=== PATIENT | male | born 1980 | race African-American/Black ===

== ENCOUNTER 2023-06-11 14:08 | Emergency (ER) | payer OTHER ==
[~2023-06-11] VITALS: Ht 182.9 cm; Wt 145.5 kg
[2023-06-11 14:09] VITALS: TEMP 98
[2023-06-11] MEDS ORDERED: Furosemide 40 MG/4 ML VIAL IV ONE (15:00)
[2023-06-11 16:33] LABS: BASO % 0.5 % (0.0-2.0); EOS # 0.1 K/mm3 (0.0-0.7); EOS % 1.6 % (0.0-4.0); GRAN % 67.9 % (42.2-75.2); HEMATOCRIT 39.4 % (42.0-52.0); HEMOGLOBIN 12.1 g/dl (13.5-18.0); LYMPH # 1.6 K/mm3 (1.2-3.4); LYMPH % 18.3 % (20.0-51.0); MEAN CELL VOLUME 81 fl (80.0-100.0); MEAN CORPUSCULAR HEMOGLOBIN 25 pg (27-31); MEAN CORPUSCULAR HGB CONC 31 g/dl (33.0-37.0); MEAN PLATELET VOLUME 9.9 fl (7.4-10.4); MONO % 11.5 % (1.7-9.3); PLATELET COUNT 212 K/mm3 (130-400); RED BLOOD COUNT 4.86 M/mm3 (4.20-5.60); REDCELL DISTRIBUTION WIDTH-CV 17.2 % (11.5-14.5)
[2023-06-11 16:44] LABS: INR 1.2 (0.8-3.0); PROTHROMBIN TIME 13.4 SECONDS (9.7-12.8)
[2023-06-11 16:47] LABS: PARTIAL THROMBOPLASTIN TIME 34.6 SECONDS (26.0-37.0)
[2023-06-11 16:51] LABS: ALBUMIN 3.3 gm/dL (3.5-5.0); BILIRUBIN,TOTAL 0.7 mg/dL (0.2-1.2); CALCIUM 9.3 mg/dL (8.4-10.2); CREATININE, serum 1.74 mg/dL (0.72-1.25); MAGNESIUM 1.7 mg/dL (1.6-2.6); POTASSIUM 3.5 mmol/L (3.5-4.5); TOTAL PROTEIN 8.4 gm/dL (6.2-8.1)
[2023-06-11 16:52] LABS: TROPONIN-I 0.023 ng/mL (0.00-0.033)
[2023-06-11 17:36] VITALS: BP 132/92; PULSE 82
== END 2023-06-11 17:53 | disposition home or self-care (01) ==
LOC: COL.ER 14:08
PROVIDERS: Family Medicine
DX: R06.89 Other abnormalities of breathing (principal); R60.9 Edema, unspecified
CPT/HCPCS: J1940

== ENCOUNTER 2023-08-07 12:17 | Emergency (ER) | payer OTHER ==
[~2023-08-07] VITALS: Ht 188 cm; Wt 157.0 kg
[~2023-08-07 12:17] MED LIST: BACTRIM DS 8001 TAB PO; CEPHALEXIN500 M1 PO; DOXYCYCLINE HY100 MG PO; LASIX 20MG TABL20 MG PO; NATURAL IRON65 MG PO; ZYLOPRIM 100MG100 MG PO
[2023-08-07 12:20] VITALS: TEMP 97.3
[2023-08-07] MEDS ORDERED: Acetaminophen 500 MG TAB PO ONE (12:30)
[2023-08-07 12:58] LABS: BASO % 0.4 % (0.0-2.0); EOS # 0.2 K/mm3 (0.0-0.7); EOS % 2.2 % (0.0-4.0); GRAN # 4.8 K/mm3 (1.4-6.5); GRAN % 69.1 % (42.2-75.2); HEMATOCRIT 38.3 % (42.0-52.0); HEMOGLOBIN 11.9 g/dl (13.5-18.0); LYMPH # 1.1 K/mm3 (1.2-3.4); LYMPH % 15.3 % (20.0-51.0); MEAN CELL VOLUME 83 fl (80.0-100.0); MEAN CORPUSCULAR HEMOGLOBIN 26 pg (27-31); MEAN CORPUSCULAR HGB CONC 31 g/dl (33.0-37.0); MONO # 0.9 K/mm3 (0.1-0.6); MONO % 12.6 % (1.7-9.3); PLATELET COUNT 214 K/mm3 (130-400); REDCELL DISTRIBUTION WIDTH-CV 16.3 % (11.5-14.5)
[2023-08-07 13:16] LABS: ALBUMIN 3.2 gm/dL (3.5-5.0); BILIRUBIN,TOTAL 0.4 mg/dL (0.2-1.2); C-REACTIVE PROTEIN 2.7 mg/dL (0.00-0.50); CALCIUM 9.4 mg/dL (8.4-10.2); CREATININE, serum 1.95 mg/dL (0.72-1.25); POTASSIUM 3.2 mmol/L (3.5-4.5); TOTAL PROTEIN 8.1 gm/dL (6.2-8.1)
[2023-08-07] MEDS ORDERED: Apixaban 5 MG TAB PO ONE (15:15)
[2023-08-07] MEDS ORDERED: ELIQUIS 5MG PO (15:16)
[2023-08-07 15:30] VITALS: BP 127/81; PULSE 62
== END 2023-08-07 15:30 | disposition home or self-care (01) ==
LOC: COL.ER 12:17
PROVIDERS: Emergency Medicine
DX: I82.622 Acute embolism and thrombosis of deep veins of left upper extremity (principal); N28.9 Disorder of kidney and ureter, unspecified

== ENCOUNTER 2023-12-07 17:23 | Inpatient (IN) | payer OTHER ==
[~2023-12-07] VITALS: Ht 188 cm; Wt 171.3 kg
[~2023-12-07 17:23] MED LIST changes: +ELIQUIS 5MG PO
[2023-12-07] MEDS ORDERED: LR 1,000 ML IV ONE (17:45)
[2023-12-07 17:55] LABS: BASO % 0.4 % (0.0-2.0); EOS # 0.2 K/mm3 (0.0-0.7); EOS % 2.3 % (0.0-4.0); GRAN # 5.5 K/mm3 (1.4-6.5); GRAN % 70.5 % (42.2-75.2); HEMATOCRIT 38.1 % (42.0-52.0); HEMOGLOBIN 11.8 g/dl (13.5-18.0); LYMPH # 1.4 K/mm3 (1.2-3.4); LYMPH % 18.1 % (20.0-51.0); MEAN CELL VOLUME 88 fl (80.0-100.0); MEAN CORPUSCULAR HEMOGLOBIN 27 pg (27-31); MEAN CORPUSCULAR HGB CONC 31 g/dl (33.0-37.0); MEAN PLATELET VOLUME 9.9 fl (7.4-10.4); MONO # 0.7 K/mm3 (0.1-0.6); MONO % 8.4 % (1.7-9.3); PLATELET COUNT 207 K/mm3 (130-400); RED BLOOD COUNT 4.32 M/mm3 (4.20-5.60); REDCELL DISTRIBUTION WIDTH-CV 16.2 % (11.5-14.5)
[2023-12-07 18:01] LABS: INR 1.2 (0.8-3.0); PROTHROMBIN TIME 13.5 SECONDS (9.7-12.8)
[2023-12-07 18:14] LABS: ALBUMIN 3.5 g/dL (3.5-5.0); BILIRUBIN,TOTAL 0.5 mg/dL (0.2-1.2); C-REACTIVE PROTEIN 1.64 mg/dL (0.00-0.50); CALCIUM 9.4 mg/dL (8.4-10.2); CREATININE, serum 1.64 mg/dL (0.72-1.25); POTASSIUM 3.3 mEq/L (3.5-4.5); TOTAL PROTEIN 7.9 g/dl (6.2-8.1)
[2023-12-07] MEDS ORDERED: NATURAL C500 MG PO (18:30)
[2023-12-07] MEDS ORDERED: LIPITOR 80MG80 MG PO (18:31)
[2023-12-07] MEDS ORDERED: PROZAC 20MG20 MG PO (18:32)
[2023-12-07] MEDS ORDERED: NEURONTIN300 MG/CAP PO (18:33)
[2023-12-07] MEDS ORDERED: MELATIN 3 MG-11 TAB PO (18:35)
[2023-12-07] MEDS ORDERED: TOPROL XL100 MG PO (18:36)
[2023-12-07] MEDS ORDERED: DESYREL 50MG50 MG PO (18:37)
[2023-12-07] MEDS ORDERED: SOAANZ20 MG PO (18:37)
[2023-12-07] MEDS ORDERED: SENEXON-S 50-81 EACH PO (18:38)
[2023-12-07] MEDS ORDERED: Apixaban 5 MG TABLET PO ONE (18:45)
[2023-12-07 20:12] LABS: COLLECTION METHOD CLEAN CATCH
[2023-12-07] MEDS ORDERED: *Potassium Replacement Protocol MC SCH (20:15)
[2023-12-07] MEDS ORDERED: Acetaminophen 325 MG TAB PO PRN (20:15)
[2023-12-07] MEDS ORDERED: Potassium Bicarbonate/Citrate 20 MEQ Effervescent TAB PO SCH (20:15)
[2023-12-07 20:17] LABS: PH 5.5 (5.0-8.5); URINE APPEARANCE CLEAR (CLEAR/HAZY); URINE BLOOD NEGATIVE (NEGATIVE); URINE COLOR YELLOW (YELLOW); URINE GLUCOSE NEGATIVE (NEGATIVE); URINE KETONE NEGATIVE (NEGATIVE); URINE NITRATE NEGATIVE (NEGATIVE); URINE PROTEIN(semi-quant) NEGATIVE (NEGATIVE); URINE UROBILINOGEN 0.2 E.U/dL (0.2-1.0)
[2023-12-07] MEDS ORDERED: Doxycycline Hyclate 100 MG in NS 150 ML IV SCH (20:45)
[2023-12-07 21:09] VITALS: BP 145/94; PULSE 95; TEMP 98.1
[2023-12-07] MEDS ORDERED: Bumetanide 1 MG/4 ML VIAL IV ONE (21:15)
[2023-12-07 21:30] VITALS: BP_SYST 145
[2023-12-07 21:47] LABS: MAGNESIUM 1.8 mg/dL (1.6-2.6)
[2023-12-07 21:54] LABS: TROPONIN-I 0.021 ng/mL (0.00-0.033)
[2023-12-07] MEDS ORDERED: Gabapentin 300 MG CAP PO SCH (22:01)
[2023-12-07] MEDS ORDERED: traZODone 50 MG TAB PO SCH (22:02)
[2023-12-07] MEDS ORDERED: Melatonin 3 MG TAB PO SCH (22:03)
[2023-12-07] MEDS ORDERED: TYLENOL 325MG325 MG PO (22:04)
[2023-12-07] MEDS ORDERED: DRISDOL50000 IU PO (22:05)
[2023-12-07] MEDS ORDERED: ELIQUIS 5MG PO (22:05)
[2023-12-07] MEDS ORDERED: MASON NATURAL325 MG PO (22:05)
[2023-12-07] MEDS ORDERED: COZAAR 25MG25 MG/TAB PO (22:06)
[2023-12-07] MEDS ORDERED: K-DUR20 MEQ PO (22:07)
[2023-12-07 23:42] VITALS: BP 134/94; PULSE 92; TEMP 98.2
[2023-12-08] VITALS (12 sets, daily range): BP systolic 106–134; BP diastolic 73–78; PULSE 77–100; TEMP 96.3–98.5
[2023-12-08 04:57] LABS: BASO % 0.4 % (0.0-2.0); EOS # 0.2 K/mm3 (0.0-0.7); EOS % 2.4 % (0.0-4.0); GRAN # 5.4 K/mm3 (1.4-6.5); GRAN % 70.8 % (42.2-75.2); HEMOGLOBIN 11.1 g/dl (13.5-18.0); LYMPH # 1.3 K/mm3 (1.2-3.4); LYMPH % 16.9 % (20.0-51.0); MEAN CELL VOLUME 88 fl (80.0-100.0); MEAN CORPUSCULAR HEMOGLOBIN 28 pg (27-31); MEAN CORPUSCULAR HGB CONC 32 g/dl (33.0-37.0); MEAN PLATELET VOLUME 10.5 fl (7.4-10.4); MONO # 0.7 K/mm3 (0.1-0.6); MONO % 9.2 % (1.7-9.3); PLATELET COUNT 194 K/mm3 (130-400); RED BLOOD COUNT 3.99 M/mm3 (4.20-5.60); REDCELL DISTRIBUTION WIDTH-CV 16.2 % (11.5-14.5)
[2023-12-08 05:03] LABS: HEMATOCRIT 34.9 % (42.0-52.0)
[2023-12-08 05:17] LABS: CHOLESTEROL RISK RATIO 4.3; CREATININE, serum 1.42 mg/dL (0.72-1.25); POTASSIUM 3.3 mEq/L (3.5-4.5)
[2023-12-08 05:23] LABS: TROPONIN-I 6 HR POST INITIAL 0.025 ng/mL (0.00-0.033)
--- NOTE | 2023-12-08 05:30 | NUR ---
PT ARRIVED TO THE MEDICAL FLOOR AROUND 2105HRS TO ROOM 352. PT A&O X 4; VSS; O2 RA. PT DENIED GENERAL PAIN, CHEST PAIN, PALPITATIONS, SOB, N,V,D OR DIZZINESS. ADMISSIONS ASSESSMENT AND MED REC COMPLETE. ADDRESSING MACHINE OPERATOR CALL ABOUT THREE TIMES RELATED TO PT HAVING VARIABLE FLUTTER, MULTFOCAL PVC'S WITH A 4 BEAT RUN OF UNIFOCAL PVC'S; 5 BEAT RUN OF V-TACH; PHIL DOWN INTO THE 40'S FOR ABOUT 8 SECOND, THEN RECOVER (pt ASLEEP), HR IN THE 140'S (pt UP TO BATHROOM HAVING A BOWEL MOVEMENT). PT ASYMPTOMATIC. HOSPITALIST NOTIFIED EACH TIME. NO NEW ORDERS. WILL CONTINUE TO MONITOR INTRUCTED. PT ORIENTED TO ROOM AND HOSPITAL POLICY. ALL QUESTIONS AND CONCERNS ADDRESSED. FALL PRECAUTIONS IN PLACE. BED ALARM ON. CALL LIGHT WITHIN.
--- NOTE | 2023-12-08 07:20 | NUR ---
ON-CALL FULL STACK DEVELOPER CONSULTED FOR pt's ACUTE ON CHRONIC HEART FAILURE. FULL STACK DEVELOPER STATED THERE IS NO CARDIOLOGY COVERAGE TODAY, PT PROBABLY WON'T BE SEEN UNTIL SUNDAY (SUNDAY AT THE EARLIEST), AND TO PASS THAT IMFORMATION ON. PT'S DAYSHIFT NURSE NOTIFIED. CHARGE NURSE AND SEAWEED HARVESTER ALSO NOTIFIED.
--- NOTE | 2023-12-08 07:41 | NUR ---
Bedside report received from MARAH Regan. Pt awake in bed ordering breakfast with no complaints. Call light within reach.
--- NOTE | 2023-12-08 07:55 | NUR ---
WOUND CARE CONSULT CALLED. MESSAGE LEFT ON ANSWERING MACHINE.
[2023-12-08] MEDS ORDERED: Allopurinol 100 MG TAB PO SCH (09:00)
[2023-12-08] MEDS ORDERED: Ferrous Sulfate 325 MG TAB PO SCH (09:00)
[2023-12-08] MEDS ORDERED: Metoprolol Tartrate 50 MG TAB PO SCH (09:00)
[2023-12-08] MEDS ORDERED: Ascorbic Acid 500 MG TAB PO SCH (09:00)
[2023-12-08] MEDS ORDERED: Apixaban 5 MG TABLET PO SCH (09:00)
[2023-12-08] MEDS ORDERED: Sennosides/Docusate 8.6-50 MG TAB PO SCH (09:00)
[2023-12-08] MEDS ORDERED: Atorvastatin 40 MG TAB PO SCH (09:00)
[2023-12-08] MEDS ORDERED: Losartan 50 MG TAB PO SCH (09:00)
[2023-12-08] MEDS ORDERED: FLUoxetine 20 MG CAP PO SCH (09:00)
--- NOTE | 2023-12-08 09:23 | NUR ---
Meetings[employer]io notified this nurse that pt was having 10 second periods of 30 bpm and then heart rate would be back into the 110s. This nurse notified Dr. Morris by phone. Dr. Morris stated he would review pt chart.
--- NOTE | 2023-12-08 10:36 | NUR ---
Pt resting in bed watching TV. Shift assessment completed. VSS. Pt states there is pain in BLE. PRN Tylenol offered and pt denied. BLE lymphedema noted with scaling/flaking of skin. Stage 2 pressure ulcer noted on Rt calf and assessed with charge nurse Dori. Pressure ulcer to Rt calf is having minimal drainage. Blister on Rt lower extremity below the knee noted. Small ulcer to Lt calf noted. INT to Rt forearm patent with no swelling, redness, or drainage. Telemetry in place and pt continues to remain in an irregular rhythm. Pt has no complaints at this time. Call light within reach and fall precautions in place.
[2023-12-08] MEDS ORDERED: Furosemide 20 MG TAB PO SCH (11:19)
[2023-12-08] MEDS ORDERED: cefTRIAXone 2 G in Water For Injection,Sterile 20 ML IV SCH (11:30)
--- NOTE | 2023-12-08 12:52 | NUR ---
This nurse spoke with wound care KITCHENWHERE MAKER Kristy over phone regarding pt wounds. MARYJANE Wagner gave verbal order for ABD dresssing to be applied to Rt calf wound BID and PRN along with MUNIR wraps on BLE. This nurse read back order and MARYJANE Wagner confirmed.
--- NOTE | 2023-12-08 14:17 | NUR ---
Data: Patient accepted spiritual care visit during Fish Packer rounds. Patient moved to this area for college from the [facility]. Has not found a emiliano community. Is interested in finding one. Patient is Presbyterian. Patient consented to Fish Packer contacting a [facility] in [place] to inquire about a small group for college students. Patient reflected on his emiliano journey. Assessment: Patient desires more community; less isolation. Plan of Care: Fish Packer provided supportive listening and prayer. Fish Packer call [facility] because it is the closest to the [place]. Requested a return call to discuss helping a college student find community. Patient thanked Fish Packer for the visit. Fish Packer will follow-up on Sunday12/10/2023.
[2023-12-09] VITALS (12 sets, daily range): BP systolic 114–142; BP diastolic 71–99; PULSE 66–99; TEMP 97.6–98.3
[2023-12-09 06:53] LABS: BASO % 0.1 % (0.0-2.0); EOS # 0.2 K/mm3 (0.0-0.7); EOS % 2.3 % (0.0-4.0); GRAN # 5.3 K/mm3 (1.4-6.5); GRAN % 69.6 % (42.2-75.2); LYMPH # 1.3 K/mm3 (1.2-3.4); LYMPH % 17.7 % (20.0-51.0); MEAN CELL VOLUME 88 fl (80.0-100.0); MEAN CORPUSCULAR HEMOGLOBIN 27 pg (27-31); MEAN CORPUSCULAR HGB CONC 31 g/dl (33.0-37.0); MEAN PLATELET VOLUME 9.9 fl (7.4-10.4); MONO # 0.8 K/mm3 (0.1-0.6); PLATELET COUNT 191 K/mm3 (130-400); RED BLOOD COUNT 4.03 M/mm3 (4.20-5.60); REDCELL DISTRIBUTION WIDTH-CV 16.8 % (11.5-14.5)
[2023-12-09 06:58] LABS: HEMATOCRIT 35.5 % (42.0-52.0)
[2023-12-09 07:09] LABS: CALCIUM 8.9 mg/dL (8.4-10.2); CREATININE, serum 1.45 mg/dL (0.72-1.25); POTASSIUM 3.4 mEq/L (3.5-4.5)
--- NOTE | 2023-12-09 07:12 | NUR ---
Bedside report received from MARAH Regan. Pt resting in bed with no complaints. Call light within reach.
[2023-12-09] MEDS ORDERED: Potassium Bicarbonate/Citrate 20 MEQ Effervescent TAB PO SCH (09:00)
--- NOTE | 2023-12-09 10:25 | NUR ---
Pt awake in room. Shift assessment completed. VSS. Pt ambulated to shower x1 assist with walker and to recliner with no complications. This nurse assisted pt with shower. Rt calf stage 2 pressure injury noted and covered with ABD dressing per orders. MUNIR wraps applied to BLE. Pt denies pain at this time. INT to Rt AC patent with no swelling, redness, or drainage. Telemetry in place. Pt has no complaints at this time. Call light within reach and fall precautions in place.
[2023-12-10] VITALS (17 sets, daily range): BP systolic 97–128; BP diastolic 61–82; PULSE 65–88; TEMP 97.4–98.2
[2023-12-10 06:29] LABS: BASO % 0.3 % (0.0-2.0); EOS # 0.2 K/mm3 (0.0-0.7); EOS % 2.6 % (0.0-4.0); GRAN # 5.2 K/mm3 (1.4-6.5); GRAN % 67.6 % (42.2-75.2); HEMOGLOBIN 10.3 g/dl (13.5-18.0); LYMPH # 1.5 K/mm3 (1.2-3.4); LYMPH % 19.3 % (20.0-51.0); MEAN CELL VOLUME 88 fl (80.0-100.0); MEAN CORPUSCULAR HEMOGLOBIN 27 pg (27-31); MEAN CORPUSCULAR HGB CONC 31 g/dl (33.0-37.0); MEAN PLATELET VOLUME 10.5 fl (7.4-10.4); MONO # 0.8 K/mm3 (0.1-0.6); MONO % 9.9 % (1.7-9.3); PLATELET COUNT 179 K/mm3 (130-400); REDCELL DISTRIBUTION WIDTH-CV 16.6 % (11.5-14.5)
[2023-12-10 06:35] LABS: HEMATOCRIT 33.4 % (42.0-52.0)
[2023-12-10 07:03] LABS: CALCIUM 8.9 mg/dL (8.4-10.2); CREATININE, serum 1.4 mg/dL (0.72-1.25); POTASSIUM 3.5 mEq/L (3.5-4.5)
--- NOTE | 2023-12-10 07:14 | NUR ---
Bedside report received from MARAH Regan. Pt resting in bed awake with no complaints. Call light within reach and fall precautions in place.
--- NOTE | 2023-12-10 09:42 | NUR ---
Pt awake in bed request to ambulate to recliner. This nurse assisted pt x1 assist with walker to recliner with no complications. Shift assessment completed. VSS. NPO status maintained. Upon giving medications as ordered this nurse dropped medication cup with morning meds onto floor. Morning PO medications disposed into med room drug buster container and new PO medications from pyxis obtained and administered as ordered. INT to Rt AC patent with no swelling, redness, or drainage. Pt denies pain at this time rating 0/10. NORMA Hernandez at bedside speaking with pt. Rt calf wound dressing CDI and covered with MUNIR wraps. Pt has no request at this time. Call light within reach and fall precautions in place.
[2023-12-10] MEDS ORDERED: Cefepime 1 G in Water For Injection,Sterile 10 ML IV SCH (10:30)
[2023-12-10] MEDS ORDERED: NARCAN4 MG NS (10:45)
[2023-12-10] MEDS ORDERED: LR 1,000 ML IV SCH (11:15)
--- NOTE | 2023-12-10 13:05 | NUR ---
Data: Brazer Assembler follow-up visit with Patient in reference to assisting him locate a emiliano community for when he departs the hospital. [facility] Left messages requesting a call back. Informed Patient of the messages and about waiting for a return call. Assessment: Patient is quiet and sleepy today. Plan of Care: Brazer Assembler will continue to reach out to [facility] to assist with finding a emiliano community for Patient for when he departs the hospital. Brazer Assembler offered a prayer for healing and for community. Patient fell asleep during prayer. Brazer Assembler will continue to follow-up with this Patient as updates on contacts with churches occur.
[2023-12-10] MEDS ORDERED: Lidocaine PF 2% (20 MG/ML) 5 ML VIAL ONE (13:40)
[2023-12-10] MEDS ORDERED: ePHEDrine 50 MG/ML VIAL ONE (13:44)
--- NOTE | 2023-12-10 14:20 | NUR ---
HARRY/CV performed in OR rm3 per Umesh,JONO request. Pt back to Medical 352 - bedside handoff performed with MARAH Ann: vitals initiated and stable, pt placed on 2L/min NC per pt request, call light in reach, pt alert and oriented.
--- NOTE | 2023-12-10 14:27 | NUR ---
Pt back to medical floor from bottle label inspector. Report received from MARAH Cabrera. Pt awake in bed with no complaints. Post op vitals stable. Call light within reach and fall precautions in place.
--- NOTE | 2023-12-10 16:11 | NUR ---
family caseworker reviewed PT/OT recommendations, both stating post acute rehab. SW met with patient to discuss discharge planning. Patient reports to live alone in [place]. Patient reports [facility] [facility] at the [facility] [place]. Pharmacy is [facility]. Patient reports he does not have a DPOA-HC. Current point of contact listed is Evan P# [phone], whom patient stated is his "uncle" and next of kin. SW asked about parents, patient stated he has parents but are not in contact with them. DME is cane and CPAP at home. Brennan reports normally he is independent with ADLS and [facility] and from appointments. SW discussed PT recommendations of post acute rehab and provided the Medicare.gov list of options for SNF but also discussed IPR and Swing Bed. Patient is open to VA rehab facility, Swing Bed or SNF. NORMA spoke with [facility] whom is not in network with the [facility]. NORMA secure emailed referral to [facility] and [facility]. SW left a voicemail with [facility]. [facility] and [facility] both are unable to accept patient at this time. NORMA left a voicemail with the [facility] psychosocial rehabilitation counselor, Marie. NORMA contacted VA psychosocial rehabilitation counselor, ALBANIA, whom explained patient has a psychosocial rehabilitation counselor through [place]. ALBANIA provided a number for Dhara [phone] ext [phone] whom he expressed would be the person to contact regarding rehab at the [facility]. NORMA received a voicemail to call Marie from the [facility] back. NORMA contacted Evan, patient's "uncle", P# [phone], whom expressed patient is not related to him but he is a friend from [place] from a restorationism there when the patient lived there. Evan was able to provide, patient's aunt, Winsome, P# [phone]. Evan stated he stays in contact with Donavan and reported he stated he had been doing well but he knows he was previously in the hospital/rehab for a month. NORMA contacted Winsome, patient's aunt, P# [phone], to discuss patient's discharge plan. NORMA explained patient was hospitalized and reasoning. NORMA explained she did not have a discharge date yet but he was improving with physical therapy. NORMA asked if she was the next of kin or if patient has parents that were living. Winsome reported she is the next of kin, Winsome expressed patient does have a living mother but they are estranged. Winsome explained she stays in contact with Donavan frequently but last she heard from him was three days ago and he expressed he was doing well and reported to be taking his medications daily. NORMA asked if patient has a DPOA-HC, Winsome stated not to her knowledge but when patient was in the they would call her for medical emergencies and she would discuss with family members for next steps. NORMA explained she would keep her updated and provided her contact information. NORMA explained she was working to see if patient would qualify to return to the [facility] for rehab or continue his rehab in his home with the home health through the [facility]. Winsome understood and would appreciate being updated. NORMA left a voicemail with Sophia from the [facility] for the rehab facility. NORMA spoke with Marie from the [facility] whom was able to provide patient's psychosocial rehabilitation counselor through the [facility], Vangie, Marcos# [phone] ext [phone]. Patient's PCP is through [facility]. Patient has [facility] for skilled care and interim healthcare for home making services such as bath aides. NORMA spoke with [facility] whom is going to review patient's information to determine if they could accept. Discharge plan: Post acute rehab vs Home with Home Health
--- NOTE | 2023-12-10 18:58 | NUR ---
report received from prema hardin. pt resting in bed watching tv. pt denies pain. fall precautions in place. call light in reach. all needs met at this time.
--- NOTE | 2023-12-10 20:47 | NUR ---
shift assessment complete, see documentation. pt tolerated hs meds well. pt abx started to right ac iv, tolerating well. pt BLE drsg/althea wraps changed, pt tolerated well. minimal drainage noted to RLE drsg. pt denies pain. fall precautions in place. call light in reach. all needs met at this time.
[2023-12-11] VITALS (11 sets, daily range): BP systolic 119–137; BP diastolic 77–88; PULSE 54–59; TEMP 97.5–98.1
[2023-12-11 06:00] LABS: BASO % 0.3 % (0.0-2.0); CALCIUM 8.9 mg/dL (8.4-10.2); CREATININE, serum 1.53 mg/dL (0.72-1.25); EOS # 0.2 K/mm3 (0.0-0.7); GRAN # 5.5 K/mm3 (1.4-6.5); HEMOGLOBIN 10.5 g/dl (13.5-18.0); LYMPH # 1.5 K/mm3 (1.2-3.4); LYMPH % 18.9 % (20.0-51.0); MEAN CELL VOLUME 89 fl (80.0-100.0); MEAN CORPUSCULAR HEMOGLOBIN 28 pg (27-31); MEAN CORPUSCULAR HGB CONC 31 g/dl (33.0-37.0); MEAN PLATELET VOLUME 10.2 fl (7.4-10.4); MONO # 0.8 K/mm3 (0.1-0.6); MONO % 9.7 % (1.7-9.3); PLATELET COUNT 179 K/mm3 (130-400); POTASSIUM 3.8 mEq/L (3.5-4.5); RED BLOOD COUNT 3.79 M/mm3 (4.20-5.60); REDCELL DISTRIBUTION WIDTH-CV 16.9 % (11.5-14.5)
[2023-12-11 06:17] LABS: HEMATOCRIT 33.8 % (42.0-52.0)
--- NOTE | 2023-12-11 07:00 | NUR ---
BEDSIDE SHIFT REPORT RECIEVED AT THIS TIMT,
[2023-12-11] MEDS ORDERED: Amiodarone 200 MG TAB PO SCH (09:00)
--- NOTE | 2023-12-11 09:27 | NUR ---
SHIFT ASSESSMENT COMPLETED AT THIS TIME. PT A&OX4. PT DENIES PAIN, NAUSEA AND SOB. SCHEDULDED MORNING MEDICATIONS ADMINISTERED AT THIS TIME. IV ANTIBIOTIC INFUSING WHEN PT VOICED CONCERN OF PAIN WITH ADMINISTRATION. THIS NURSE STOPPED THE MEDICATION FROM INFUSING AND NOTIFIED CHARGE NURSE. IV INT'D. PT HAS BILATERAL DRESSINGS TO LOWER EXTREMITIES WITH NOTED SWELLING. PT HAS NO OTHER CONCERNS OR COMLANINTS AT THIS TIME. PHYSICAL THERAPY ARRIVED TO ROOM THIS NURSE WAS LEAVING. CALL LIGHT WITHIN REACH.
[2023-12-11] MEDS ORDERED: *Potassium Replacement Protocol MC SCH (09:45)
[2023-12-11] MEDS ORDERED: Potassium Bicarbonate/Citrate 20 MEQ Effervescent TAB PO ONE (09:45)
--- NOTE | 2023-12-11 10:20 | NUR ---
Data: Follow-up with Patient. Pastor Turner from [facility] contacted Police Magistrate about visiting Patient. Police Magistrate asked Patient if he is still interested in having the Airframe And Powerplant Technician visit him. Patient said yes. Assessment: Patient desires to build community in a emiliano-based setting once he leaves the hospital. Plan of Care: Police Magistrate contacted Airframe And Powerplant Technician to tell him Patient is willing to meet him. Police Magistrate will introduce Airframe And Powerplant Technician to Patient once his schedule allows for the meeting. Chaplains will remain available as needed/requested while Patient is admitted to this hospital.
--- NOTE | 2023-12-11 13:19 | NUR ---
dry drug worker heard from Sophia at the [facility], P# [phone]. Sophia stated she would review to see if patient could be accepted there. NORMA faxed referral to F# [phone]. NORMA was notified patient wanted to speak with her. NORMA met with patient whom expressed he would like to return home with his home health services. Patient reports he does not want to go to post acute rehab as he wants to be able to return to school in December. NORMA explained she was waiting to hear back from Sophia and she would keep him updated. Patient stated he does not want to go to post acute rehab. SW explained she would let his doctor know. NORMA notified [facility], whom expressed patient may be able to discharge today or tomorrow. NORMA was notified by Sophia at the [facility] that they are unable to accept patient and they would recommend either LTC or AL. NORMA notified patient's aunt, Winsome, P# [phone] and updated her. NORMA Student [facility] Discharge plan: Home with home health
--- NOTE | 2023-12-11 15:15 | NUR ---
THIS NURSE ASSISTED PT WITH SHOWER AND BATHING CARES. WOUND CARE CONSULT COMPLETED AT THE TIME THIS NURSE WAS IN THE ROOM. THIS NURSE OBSERVED THE DRESSING CHANGE AND OPEN WOUND. PT TOLERATED SHOWER WELL. PT DENIES PAIN, NAUSEA, AND SOB. NO FURTHER COMPLAINTS. CALL LIGHT WITHIN REACH.
--- NOTE | 2023-12-11 16:32 | NUR ---
detention worker met with patient to explain the recommendations from the [facility] of LTC or AL. Patient stated he wants to go home with home health. SW explained she would continue to follow along and will send his discharge orders to his home health agency once he is ready for discharge. NORMA left a voicemail with patient's supervisor case loading, Vangie, Marcos# [phone] to determine if they have any meal programs to assist patient when he returns home. Discharge plan: Home with Home Health- [facility]
--- NOTE | 2023-12-11 19:15 | NUR ---
PT SITTING IN CHAIR. PT DENIES PAIN AT THIS TIME. NO FURTHER QUESTIONS OR CONCERNS. BEDSIDE SHIFT REPORT GIVEN AT THIS TIME.
--- NOTE | 2023-12-11 21:20 | NUR ---
Administered scheduled medications per JUL. Shift assessment complete. Pt. is A&O x4 w/ flat affect. Pt. is on rm air at this time. BLE are large & edemetous- dressed w/ MUNIR wraps. Open wound to R calf not visualized at this time. Heels and lateral feet appear to be dry and flaking. Pt. states he is having 8/10 nerve pain. Scheduled gabapentin administered per JUL. Offered pt. PRN tylenol; however, pt. is refusing. No further complaints or request at this time. Call light in reach.
[2023-12-12 00:20] VITALS: BP 128/73; PULSE 59; TEMP 98.1
[2023-12-12 01:12] VITALS: BP_SYST 128
[2023-12-12 04:22] VITALS: BP 110/65; PULSE 57; TEMP 97.5
[2023-12-12 05:10] VITALS: BP_SYST 110
[2023-12-12 06:09] LABS: BASO % 0.1 % (0.0-2.0); EOS # 0.2 K/mm3 (0.0-0.7); EOS % 2.8 % (0.0-4.0); GRAN # 4.9 K/mm3 (1.4-6.5); GRAN % 69.2 % (42.2-75.2); HEMOGLOBIN 11.1 g/dl (13.5-18.0); LYMPH # 1.3 K/mm3 (1.2-3.4); LYMPH % 18.9 % (20.0-51.0); MEAN CELL VOLUME 90 fl (80.0-100.0); MEAN CORPUSCULAR HEMOGLOBIN 28 pg (27-31); MEAN CORPUSCULAR HGB CONC 31 g/dl (33.0-37.0); MEAN PLATELET VOLUME 10.2 fl (7.4-10.4); MONO # 0.6 K/mm3 (0.1-0.6); MONO % 8.7 % (1.7-9.3); PLATELET COUNT 180 K/mm3 (130-400); RED BLOOD COUNT 3.95 M/mm3 (4.20-5.60); REDCELL DISTRIBUTION WIDTH-CV 16.7 % (11.5-14.5)
[2023-12-12 06:13] LABS: HEMATOCRIT 35.4 % (42.0-52.0)
[2023-12-12 06:19] LABS: CREATININE, serum 1.47 mg/dL (0.72-1.25); POTASSIUM 3.7 mEq/L (3.5-4.5)
--- NOTE | 2023-12-12 06:30 | NUR ---
BEDSIDE SHIFT REPORT REIEVED AT THIS TIME.
--- NOTE | 2023-12-12 07:02 | NUR ---
Pt. has been stable throughout the night. Pt. c/o pain twice last night but refused PRN tylenol both times and stated, pain was "alright." Pt. refused his CPAP and O2 last night, but 02 sats stayed WNL. Pt. was not up through the night, and used urinal to void. Pt. was given 150 mL fluid just before day shift arrived. No complaints or requests at this time. Call light in reach.
[2023-12-12 07:21] VITALS: BP 115/79; PULSE 59; TEMP 97.9
--- NOTE | 2023-12-12 09:30 | NUR ---
UPON ARRIVAL TO PT'S ROOM WITH DR. CERON, PT WAS RESTING IN BED WITH EYES CLOSED. PT WAS HARD TO AROUSE AND HAD DIFFICULTY STAYING AWAKE AFTER MANY ATTEMPTS. DR. CERON AWARE. NEW ORDERS RECIEVED.
[2023-12-12] MEDS ORDERED: PACERONE200 MG PO (09:34)
[2023-12-12] MEDS ORDERED: LOPRESSOR100 MG PO (09:35)
[2023-12-12] MEDS ORDERED: OMNICEF 300MG300 MG PO (09:35)
[2023-12-12 09:58] VITALS: BP_SYST 115
--- NOTE | 2023-12-12 10:01 | NUR ---
SHIFT ASSESSMENT COMPLETED AT THIS TIME. PT DENIES PAIN AND NAUSEA AT THIS TIME. PT A&OX4. IV ANTIBIOTIS INFUSING IN PERIPHERAL IV. FALL PRECAUTIONS IN PLACE. CALL LIGHT WITHIN REACH.
--- NOTE | 2023-12-12 12:16 | NUR ---
DISCHARGE ORDERS RECIEVED. DISCHARGE EDUCATION AND INSTRUCTIONS PROVIDED AT THIS TIME. PT VERBALIZES UNDERSTANDING. PT HAS NO QUESTIONS OR CONCERNS AT THIS TIME. INT DC'D. TELE DC'D. PT DRESSED AND BELONGINGS GATHERED FOR PATIENT.
--- NOTE | 2023-12-12 13:01 | NUR ---
PT ESCORTED VIA WHEELCHAIR TO [facility] BY THIS NURSE. EMS TO MEET PT AT HOME TO ASSIST PT INSIDE [facility]. NO FURTHER QUESTIONS AT THIS TIME.
--- NOTE | 2023-12-12 13:54 | NUR ---
aniline press worker attended interdisciplinary cliniical rounding with Dr. Lepe. Patient is medically ready for discharge. Patient still wants to return home with home health. NORMA discussed transportation. Patient left a message with the OR but may need an UBER home. NORMA contacted [facility] whom expressed they did not have patient on their caseload for bath aides. NORMA contacted [facility] whom expressed they are able to accept patient back with PT, OT and nursing. [facility] expressed if patient needs wound care more than once a week they would need an updated contract through the OR. NORMA spoke with Dr. Lepe whom reports once a week would be okay. NORMA left a voicemail with Vangie, patient's senior case manager, regarding the needs for meal prep and bath aide. NORMA contacted Marie at the OR whom expressed she can see patient has bath aide services through [facility] and skilled home health through [facility]. Marie reported she was going to look into it since [facility] expressed they did not have the patient. NORMA received a call from [facility] whom reports patient has [facility] for bath aides but [facility] had not started their services yet, but they would be reaching out to the patient to get started. NORMA faxed discharge orders and updates to [facility]. NORMA was notified patient needs an UBER home. SW asked if patient has someone there that could meet him to bring his walker to him. Patient stated no. NORMA contacted EMS and asked if they could meet patient at his home to assist with transfer out of vehicle and up the stairs they stated they could. NORMA scheduled [facility] transportation. NORMA contacted EMS and explained patient will be picked up by [facility] shortly. EMS expressed they would head towards the patient's home. NORMA notified patient's aunt, Winsome, of discharge home today with home health. NORMA explained she notified the senior case manager of need for meal preparation and they would assist patient with this. Winsome thanked nursing home social worker and had no further questions or concerns. Discharge plan: Home with home health - [facility] and [facility] Bath Aide
--- NOTE | 2023-12-13 11:23 | NUR ---
Spiritual Care Follow-up: Bus Matron was in contact with [facility] today (12-13-2023). Pastor Turner reported that he had visited Patient on 12-11-2023 for approximately 45 minutes. thanked Pastor Turner for having provided that visit.
[2023-12-18] MEDS ORDERED: Amiodarone 200 MG TAB PO SCH (09:00)
[2023-12-25] MEDS ORDERED: Amiodarone 200 MG TAB PO SCH (09:00)
== END 2023-12-12 13:02 | disposition home health service (06) | DRG 291 ==
LOC: COL.ER 17:23 → MEDICAL 19:57
PROVIDERS: Family Medicine; Internal Medicine; Nurse Practitioner Family; Physician Assistant; ADMIT Internal Medicine
PROC: 5A09357 Assistance with Respiratory Ventilation, Less than 24 Consecutive Hours, Continuous Positive Airway Pressure (ICD-10-PCS; principal; 2023-12-08)
DX: I13.0 Hypertensive heart and chronic kidney disease with heart failure and stage 1 through stage 4 chronic kidney disease, or unspecified chronic kidney disease (principal); I50.23 Acute on chronic systolic (congestive) heart failure; F20.0 Paranoid schizophrenia; I47.29 Other ventricular tachycardia; I48.92 Unspecified atrial flutter; E87.20 Acidosis, unspecified; Z68.42 Body mass index [BMI] 45.0-49.9, adult; L97.219 Non-pressure chronic ulcer of right calf with unspecified severity; L97.329 Non-pressure chronic ulcer of left ankle with unspecified severity; I89.0 Lymphedema, not elsewhere classified; E66.01 Morbid (severe) obesity due to excess calories; I25.10 Atherosclerotic heart disease of native coronary artery without angina pectoris; N18.31 Chronic kidney disease, stage 3a; I48.0 Paroxysmal atrial fibrillation; G47.33 Obstructive sleep apnea (adult) (pediatric); I42.0 Dilated cardiomyopathy; F32.A Depression, unspecified; K21.9 Gastro-esophageal reflux disease without esophagitis; I08.3 Combined rheumatic disorders of mitral, aortic and tricuspid valves; I45.81 Long QT syndrome; M10.9 Gout, unspecified; E55.9 Vitamin D deficiency, unspecified; R53.81 Other malaise; D64.9 Anemia, unspecified; R73.9 Hyperglycemia, unspecified; B96.89 Other specified bacterial agents as the cause of diseases classified elsewhere; E87.6 Hypokalemia; Z91.199 Patient's noncompliance with other medical treatment and regimen due to unspecified reason; Z86.718 Personal history of other venous thrombosis and embolism; Z79.01 Long term (current) use of anticoagulants; Z95.5 Presence of coronary angioplasty implant and graft; Z79.899 Other long term (current) drug therapy; Z91.148 Patient's other noncompliance with medication regimen for other reason; Z23 Encounter for immunization
CPT/HCPCS: J0692; J0696; J2704; J7120

== ENCOUNTER 2024-03-21 12:33 | Emergency (ER) | payer OTHER ==
[~2024-03-21] VITALS: Ht 190.5 cm; Wt 176.4 kg
[~2024-03-21 12:33] MED LIST changes: +COZAAR 25MG25 MG/TAB PO; +DESYREL 50MG50 MG PO; +K-DUR20 MEQ PO; +LIPITOR 40MG TA40 MG PO; +LOPRESSOR100 MG PO; +MASON NATURAL325 MG PO; +MELATONIN5 M1 SL; +NARCAN4 MG NS; +NATURAL C500 MG PO; +NEURONTIN300 MG/CAP PO; +OMNICEF 300MG300 MG PO; +PACERONE200 MG PO; +PROZAC 20MG20 MG PO; +SENEXON-S 50-81 EACH PO; +SOAANZ20 MG PO; +TOPROL XL100 MG PO; +TYLENOL 325MG325 MG PO; +VITAMIN D 50,1.25 MG PO
[2024-03-21 12:35] VITALS: TEMP 97.9
[2024-03-21 15:00] VITALS: PULSE 59
[2024-03-21 15:35] LABS: BASO % 0.2 % (0.0-2.0); EOS # 0.2 K/mm3 (0.0-0.7); EOS % 2.7 % (0.0-4.0); GRAN # 5.7 K/mm3 (1.4-6.5); GRAN % 69.9 % (42.2-75.2); HEMATOCRIT 43.2 % (42.0-52.0); HEMOGLOBIN 13.3 g/dl (13.5-18.0); LYMPH # 1.2 K/mm3 (1.2-3.4); LYMPH % 15.1 % (20.0-51.0); MEAN CELL VOLUME 92 fl (80.0-100.0); MEAN CORPUSCULAR HEMOGLOBIN 28 pg (27-31); MEAN CORPUSCULAR HGB CONC 31 g/dl (33.0-37.0); MEAN PLATELET VOLUME 10.6 fl (7.4-10.4); MONO % 11.6 % (1.7-9.3); PLATELET COUNT 181 K/mm3 (130-400); RED BLOOD COUNT 4.72 M/mm3 (4.20-5.60); REDCELL DISTRIBUTION WIDTH-CV 15.8 % (11.5-14.5)
[2024-03-21 15:52] LABS: ALBUMIN 3.6 g/dL (3.5-5.0); BILIRUBIN,TOTAL 0.6 mg/dL (0.2-1.2); CALCIUM 9.2 mg/dL (8.4-10.2); CREATININE, serum 1.8 mg/dL (0.72-1.25); POTASSIUM 3.6 mEq/L (3.5-4.5); TOTAL PROTEIN 8.8 g/dl (6.2-8.1)
[2024-03-21 16:19] VITALS: BP 148/96
--- NOTE | 2024-03-21 16:31 | NUR ---
Supervisor Hand Workers was consulted in the ED for patient who is in need of wound care. SW met with patient who confirmed he lives alone in [place]. Patient goes to the [facility] for primary care and stated he was seen a couple weeks ago. Patient reported he has an edema pump, CPAP, walker, and cane available at home. Per patient's report he gets around his home okay and "does his best" with ADLS. SW inquired about DPOA-HC or next of kin. Patient reported he does not have DPOA-HC, is not , and does not have children. When SW asked about parents (legal next of kin) patient firmly told SW she did not need this information. SW provided education on Advance Directives and notifying legal next of kin if there were any emergency. Patient listed his friend, Evan as emergency contact and would not provide any other contacts. Patient reported he had Home Health through [facility] and was discharged due to "non compliance" with medications and diet. Patient still feels he needs in home nursing as he stated he is not physically able to do his own wound care. SW inquired about informal supports and he stated he has no one to come check on him. SW was up front with patient that due to time of day, day of week, things would likely not be resolved until Sunday at the earliest. Patient verbalized understanding and just requested and UBER home, which SW arranged. NORMA attempted to call his [facility] SW, Vangie and left a detailed message. NORMA also contacted [facility] and their office was closed. SW left a detailed message. NORMA also made a report to Adult Protective Services (intake #[id number])
[2024-03-25] MEDS ORDERED: CORDARONE200 MG/TAB PO (10:25)
[2024-03-25] MEDS ORDERED: WELLBUTRIN XL150 MG PO (10:27)
[2024-03-25] MEDS ORDERED: AQUAPHOR HEALING41% TP (10:29)
[2024-03-25] MEDS ORDERED: COZAAR100 MG PO (10:31)
[2024-03-25] MEDS ORDERED: LOTSPY TOP (10:33)
[2024-03-25] MEDS ORDERED: DIAPERRASHOINT TOP (10:35)
== END 2024-03-21 16:30 | disposition home or self-care (01) ==
LOC: COL.ER 12:33
PROVIDERS: Physician Assistant
DX: I89.0 Lymphedema, not elsewhere classified (principal); E66.01 Morbid (severe) obesity due to excess calories; Z68.42 Body mass index [BMI] 45.0-49.9, adult